=== PATIENT | female | born 1990 | race Caucasian/White ===

== ENCOUNTER 2020-06-17 18:39 | Emergency (ER) | payer OTHER, MEDICAID ==
[~2020-06-17] VITALS: Ht 167.6 cm; Wt 62.6 kg
[2020-06-17 18:44] VITALS: BP 116/71
[2020-06-17] MEDS ORDERED: IBUPROFEN 800800 M1 PO (19:07)
[2020-06-17] MEDS ORDERED: HYDROCODON-ACE1 EAC7 PO (19:07)
[2020-06-17] MEDS ORDERED: DOXYCYCLINE 10100 MG PO (19:07)
== END 2020-06-17 19:12 | disposition home or self-care (01) ==
LOC: M.ERS 18:39
DX: L03.115 Cellulitis of right lower limb (principal); Z98.51 Tubal ligation status; Z91.041 Radiographic dye allergy status; Z88.8 Allergy status to other drugs, medicaments and biological substances

== ENCOUNTER 2020-06-19 06:22 | Emergency (ER) | payer OTHER, MEDICAID ==
[~2020-06-19] VITALS: Ht 165.1 cm; Wt 63.5 kg
[~2020-06-19 06:22] MED LIST: DOXYCYCLINE 10100 MG PO; HYDROCODON-ACE1 EAC7 PO; IBUPROFEN 800800 M1 PO
[2020-06-19] MEDS ORDERED: TYLENOL325 M1 PO (08:00)
[2020-06-19] MEDS ORDERED: NAPROSYN500 MG PO (08:00)
[2020-06-19 08:12] VITALS: BP 112/72
== END 2020-06-19 08:13 | disposition home or self-care (01) ==
LOC: M.ERS 06:22
DX: L02.415 Cutaneous abscess of right lower limb (principal); Z91.041 Radiographic dye allergy status; Z88.8 Allergy status to other drugs, medicaments and biological substances; Z98.51 Tubal ligation status